=== PATIENT | male | born 1980 | race Caucasian/White ===

== ENCOUNTER 2021-06-11 00:25 | Emergency (ER) | payer MEDICAID ==
[~2021-06-11] VITALS: Ht 175.3 cm; Wt 68.2 kg
[2021-06-11 00:37] VITALS: BP 122/74
[2021-06-11] MEDS ORDERED: LORazepam 1 MG tablet PO ONE (00:45)
[2021-06-11] MEDS ORDERED: ALBU8HFA PO (03:41)
== END 2021-06-11 04:16 | disposition home or self-care (01) ==
LOC: EDBD 00:27 → ER 00:27
DX: R05 Cough (principal); Z87.01 Personal history of pneumonia (recurrent); Z88.2 Allergy status to sulfonamides; Z79.899 Other long term (current) drug therapy
CPT/HCPCS: 71045; 99283